=== PATIENT | male | born 1935 | race African-American/Black ===

== ENCOUNTER → 2016-07-03 | Day surgery (SDC) | payer MEDICARE ==
[~2016-07-03] MED LIST: Acetaminophen TAB* 325 MG PO PRN; Buffered Lidocaine 1% SYR 3ML* 3 ML/SYR SYRINGE ONE; Bupivacaine 0.5% SDV PF* 30 ML VIAL ONE; Dexamethasone IV* 4 MG/ML 1 ML (4 MG) ONE; DiMENhydriNATE IV* 50 MG/ML VIAL IV PUSH PRN; Famotidine IV* 10 MG/ML 2 ML (20 mg) ONE; HYDROmorphone INJ* 1 MG/ML CARPUJECT SYRINGE IV PRN; Ketorolac INJ* 30 MG/ML 1 ML VIAL ONE; Lidocaine 2% MPF* 2 ML VIAL ONE; Midazolam* 1 MG/ML 2 ML VIAL (2 MG) ONE; Ondansetron INJ* 2 MG/ML VIAL IV PRN; Ondansetron INJ* 2 MG/ML VIAL ONE; PROCHLORPERAZINE INJ 5 MG/ML 2 ML VIAL IV PRN; Propofol* 10 MG/ML 20 ML BTL IV PUSH ONE; ceFAZolin 2 GM PREMIX (*) 2 GM/50 ML BAG IVPB ONE; fentaNYL* 50 MCG/ML 2 ML VIAL (100 MCG VIAL) ONE; oxyCODONE/Acetamin 5/325 MG* TAB PO PRN
[2016-07-03 18:40] VITALS: BP 163/80
--- NOTE | 2016-07-03 23:18 | RAD ---
CPT II Codes: 6045F INDICATION: Right fibular fracture and the ankle. Fluoroscopic services provided for referring physician. 5.1 seconds of fluoroscopy time was used. There is 2 spot images demonstrates internal fixation with a plate and screws of a distal fibular fracture. IMPRESSION: Fluoroscopic services provided for referring physician.
--- NOTE | 2016-07-04 14:54 | OP ---
DATE OF OPERATION: 07/03/16 - [facility] DATE OF : 39 SURGEON: Tim Murry MD STEAM TABLE ASSOCIATE: Cindi Uribe PA-C ANESTHESIOLOGIST: Dr. Hernandes ANESTHESIA: General PRE-OP DIAGNOSIS: Right distal fibular fracture, small posterior malleolar fragment. POST-OP DIAGNOSIS: Right distal fibular fracture, small posterior malleolar fragment. OPERATIVE PROCEDURE: Open reduction internal fixation, right fibula. DESCRIPTION OF PROCEDURE: The patient was taken to the operating room, lateral position used. We made a 10 cm longitudinal incision along the fibula where this long oblique fracture was identified in the Cerda B distribution. We reduced it with couple of crab-claw clamps and pinned it longitudinally with 0.062 C-wire. We then fashioned a 3.5 mm Recon plate to fit the posterior aspect of the fibula. Back to front cortical screws were placed distal and proximal to the fracture with couple of the screws lagging the fracture fragments together. An x-ray intraoperatively showed satisfactory position of the mortise and the fibula fracture. Also, posterior malleolus appeared to be well reduced. We then irrigated thoroughly, closing with 2-0 Vicryl sutures and guilherme for the skin and a compression dressing. Plaster splint applied. [id number]/[facility] #: [id number] MTDD
== END | disposition home or self-care (01) ==
LOC: OR 10:56
PROVIDERS: ATTEND Orthopaedic Surgery
DX: S82.841A Displaced bimalleolar fracture of right lower leg, initial encounter for closed fracture (principal); E11.9 Type 2 diabetes mellitus without complications; I10 Essential (primary) hypertension; Z68.37 Body mass index [BMI] 37.0-37.9, adult; E78.00 Pure hypercholesterolemia, unspecified; W00.0XXA Fall on same level due to ice and snow, initial encounter; Y92.89 Other specified places as the place of occurrence of the external cause
CPT/HCPCS: C1713; C1776; J0690; J1100; J1885; J2250; J2405; J2704; J3010